=== PATIENT | male | born 1945 | race Caucasian/White ===

== ENCOUNTER → 2019-06-16 | Outpatient (CLI) | payer MEDICARE ==
[~2019-06-16] MED LIST: OMNIPAQUE 350 MG/ML, 100ML BOTTLE ONE
[2019-06-16 15:33] LABS: CREATININE 1.06 mg/dL (0.7-1.3)
[2019-06-16 15:39] LABS: BASOPHILS # (AUTO) 0.04 x10^3/uL (0-0.1); BASOPHILS % (AUTO) 0 % (0-1); EOSINOPHILS # (AUTO) 0.36 x10^3/uL (0-0.4); EOSINOPHILS % (AUTO) 3 % (1-7); LYMPHOCYTES % (AUTO) 24 % (22-44); MD NO; MEAN CORPUSCULAR HEMOGLOBIN 30.1 pg (27.5-34.5); MEAN CORPUSCULAR HGB CONC 33.2 g/dL (33.2-36.2); MEAN CORPUSCULAR VOLUME 90.7 fL (81-97); MEAN PLATELET VOLUME 9.1 fL (7.4-10.4); MONOCYTES # (AUTO) 1.13 x10^3/uL (0.2-0.8); MONOCYTES % (AUTO) 8 % (2-9); NEUTROPHILS # (AUTO) 8.63 x10^3/uL (1.8-6.8); NEUTROPHILS % (AUTO) 65 % (42-75); PLATELET COUNT 291 x10^3/uL (130-400); RED BLOOD COUNT 5.44 x10^6/uL (4.38-5.82); RED CELL DISTRIBUTION WIDTH 13.5 % (9.4-14.8)
[2019-06-16 15:45] LABS: ALANINE AMINOTRANSFERASE 38 U/L (12-78); ALBUMIN 4.1 g/dL (3.4-5.0); ANION GAP 7 mmol/L (5-15); CALCIUM 9.7 mg/dL (8.5-10.1); CHLORIDE 107 mmol/L (98-107); CREATININE 1.05 mg/dL (0.7-1.3)
[2019-06-16 15:48] LABS: ALKALINE PHOSPHATASE 86 U/L (45-117); BILIRUBIN,TOTAL 0.4 mg/dL (0.2-1.0); TOTAL PROTEIN 7.8 g/dL (6.4-8.2)
== END | disposition home or self-care (01) ==
LOC: RAD 14:45
PROVIDERS: ATTEND Family Medicine
DX: K57.32 Diverticulitis of large intestine without perforation or abscess without bleeding (principal); N28.1 Cyst of kidney, acquired; K44.9 Diaphragmatic hernia without obstruction or gangrene; M47.816 Spondylosis without myelopathy or radiculopathy, lumbar region
CPT/HCPCS: 36415; 74177; 80053; 82565; 85025; Q9967

== ENCOUNTER 2019-12-30 07:51 | Outpatient (CLI) | payer MEDICARE ==
[2019-12-30] MEDS ORDERED: MAGN400T36 PO (08:19)
[2019-12-30] MEDS ORDERED: ZINC PO (08:19)
[2019-12-30] MEDS ORDERED: MULT-154 PO (08:19)
[2019-12-30] MEDS ORDERED: POTASSIUM PO (08:19)
[2019-12-30] MEDS ORDERED: B CO1TAB14 PO (08:19)
[2019-12-30] MEDS ORDERED: EZET10TA70 PO (08:19)
[2019-12-30] MEDS ORDERED: ASPI81TA45 PO (08:19)
[2019-12-30] MEDS ORDERED: DILT240C77 PO (08:19)
[2019-12-30] MEDS ORDERED: OMEG1CAP6 PO (08:19)
[2019-12-30] MEDS ORDERED: CELE200C PO (08:19)
[2019-12-30] MEDS ORDERED: TAMS-11 PO (08:19)
[2019-12-30] MEDS ORDERED: OXYC-302 PO (08:19)
[2019-12-30] MEDS ORDERED: METO25TA35 PO (08:19)
[2019-12-30] MEDS ORDERED: GLUC500T11 PO (08:19)
[2019-12-30] MEDS ORDERED: MELA5TAB14 PO (08:19)
== END 2019-12-30 23:59 | disposition home or self-care (01) ==
LOC: STAR 07:51
PROVIDERS: ATTEND Orthopaedic Surgery
DX: Z01.818 Encounter for other preprocedural examination (principal); Z11.59 Encounter for screening for other viral diseases; M25.561 Pain in right knee; S83.241A Other tear of medial meniscus, current injury, right knee, initial encounter; M75.40 Impingement syndrome of unspecified shoulder; X58.XXXA Exposure to other specified factors, initial encounter; Y93.89 Activity, other specified; Y92.89 Other specified places as the place of occurrence of the external cause; Y99.8 Other external cause status
CPT/HCPCS: 93005; U0001

== ENCOUNTER 2020-01-03 06:51 | Day surgery (SDC) | payer MEDICARE ==
[~2020-01-03] VITALS: Ht 188 cm; Wt 99.5 kg
[~2020-01-03 06:51] MED LIST changes: +ASPI81TA45 PO; +B CO1TAB14 PO; +CELE200C PO; +DILT240C77 PO; +EZET10TA70 PO; +GLUC500T11 PO; +MAGN400T36 PO; +MELA5TAB14 PO; +METO25TA35 PO; +MULT-154 PO; +OMEG1CAP6 PO; -OMNIPAQUE 350 MG/ML, 100ML BOTTLE ONE; +OXYC-302 PO; +POTASSIUM PO; +TAMS-11 PO; +ZINC PO
[2020-01-03] MEDS ORDERED: LACTATED RINGERS 1,000 ML IV SCH (07:03)
[2020-01-03 07:14] VITALS: BP_SYST 73
[2020-01-03] MEDS ORDERED: CHLORHEXIDINE 15 ML UDC MM ONE (07:30)
[2020-01-03] MEDS ORDERED: LIDOCAINE-MPF 1%, 2ML INFIL ONE (07:30)
[2020-01-03 07:34] VITALS: BP 144/73
[2020-01-03] MEDS ORDERED: FENTANYL PF 100 MCG/2ML ONE ×2 (07:52→09:32)
[2020-01-03] MEDS ORDERED: BUPIVACAINE/PF-EPI 0.5% 1:200K ONE (08:33)
[2020-01-03] MEDS ORDERED: LIDOCAINE/PF 1%-EPI 1:200K, 30 ML ONE (08:33)
[2020-01-03] MEDS ORDERED: EPHEDRINE 50 MG/ML, 1ML ONE (08:40)
[2020-01-03] MEDS ORDERED: EPINEPHRINE 1 MG/ML, 1ML ONE (08:40)
[2020-01-03] MEDS ORDERED: LIDOCAINE-MPF 2% ,5ML ONE (08:59)
[2020-01-03] MEDS ORDERED: PROPOFOL 10 MG/ML, 20ML ONE (08:59)
[2020-01-03] MEDS ORDERED: CEFAZOLIN 1,000 MG ONE (08:59)
[2020-01-03] MEDS ORDERED: ONDANSETRON 2MG/ML, 2ML ONE (08:59)
[2020-01-03] MEDS ORDERED: DEXAMETHASONE 4 MG/ML, 1ML ONE (08:59)
[2020-01-03] MEDS ORDERED: KETOROLAC 30 MG/1 ML ONE (08:59)
[2020-01-03] MEDS ORDERED: TAMSULOSIN 0.4 MG CAP.ER.24H PO SCH (09:00)
[2020-01-03] MEDS ORDERED: OMEGA-3/FISH OIL CAPSULE PO SCH (09:00)
[2020-01-03] MEDS ORDERED: ASPIRIN 81 MG TABLET EC PO SCH (09:00)
[2020-01-03] MEDS ORDERED: MULTIVITAMIN 1 TABLET PO SCH (09:00)
[2020-01-03] MEDS ORDERED: OXYcodone/APAP 5/325MG TABLET PO SCH (09:00)
[2020-01-03] MEDS ORDERED: EZETIMIBE 10 MG TABLET PO SCH (09:00)
[2020-01-03] MEDS ORDERED: METOPROLOL TARTRATE 25 MG TAB PO SCH (09:00)
[2020-01-03] MEDS ORDERED: MIDAZOLAM 1 MG/ML, 2ML IV PRN (09:30)
[2020-01-03] MEDS ORDERED: LABETALOL 5MG/ML, 20ML IV PRN (09:30)
[2020-01-03] MEDS ORDERED: ACETAMINOPHEN 325 MG TABLET PO PRN (09:30)
[2020-01-03] MEDS ORDERED: hydrALAzine 20 MG/ML, 1ML IV PRN (09:30)
[2020-01-03] MEDS ORDERED: PROMETHAZINE 25 MG/ML, 1ML IVPush PRN (09:30)
[2020-01-03] MEDS ORDERED: ALBUTEROL SULFATE 2.5 MG/3 ML NPPB PRN (09:30)
[2020-01-03] MEDS ORDERED: OXYcodone 5 MG/5 ML ORAL.SOL UDC PO PRN (09:30)
[2020-01-03] MEDS ORDERED: OXYcodone 5 MG/5 ML ORAL.SOL UDC ONE (09:32)
[2020-01-03] MEDS: FENTANYL PF 100 MCG/2ML IV PRN ×2 (09:34→09:45)
[2020-01-03] MEDS ORDERED: HYDROmorphone 1 MG/ML, 1ML INJ ONE (09:50)
[2020-01-03] MEDS ORDERED: HYDROmorphone 1 MG/ML, 1ML INJ IVPush PRN (10:00)
[2020-01-03] MEDS ORDERED: MELATONIN 5 MG TABLET PO SCH (21:00)
[2020-01-04] MEDS ORDERED: DILTIAZEM 240 MG CAP.ER.24H PO SCH (09:00)
== END 2020-01-03 12:10 | disposition home or self-care (01) ==
LOC: OUT 06:51
PROVIDERS: ATTEND Orthopaedic Surgery
DX: S83.231A Complex tear of medial meniscus, current injury, right knee, initial encounter (principal); S83.271A Complex tear of lateral meniscus, current injury, right knee, initial encounter; M22.41 Chondromalacia patellae, right knee; M17.11 Unilateral primary osteoarthritis, right knee; I10 Essential (primary) hypertension; E78.5 Hyperlipidemia, unspecified; I25.10 Atherosclerotic heart disease of native coronary artery without angina pectoris; I25.2 Old myocardial infarction; J45.909 Unspecified asthma, uncomplicated; G47.33 Obstructive sleep apnea (adult) (pediatric); Z79.891 Long term (current) use of opiate analgesic; Z79.899 Other long term (current) drug therapy; Z87.891 Personal history of nicotine dependence; Z88.5 Allergy status to narcotic agent; Z90.49 Acquired absence of other specified parts of digestive tract; Z98.52 Vasectomy status; Z98.890 Other specified postprocedural states; Z95.5 Presence of coronary angioplasty implant and graft; Z82.61 Family history of arthritis; Z82.3 Family history of stroke; Z82.49 Family history of ischemic heart disease and other diseases of the circulatory system; X58.XXXA Exposure to other specified factors, initial encounter; Y93.89 Activity, other specified; Y92.89 Other specified places as the place of occurrence of the external cause; Y99.8 Other external cause status
CPT/HCPCS: 29880; J0690; J1100; J1170; J1885; J2405; J2704; J3010; J3490; J7120; J0171